=== PATIENT | male | born 2000 | race Caucasian/White ===

== ENCOUNTER 2023-04-16 08:54 | Emergency (ER) | payer SELFPAY ==
[2023-04-16 09:01] VITALS: BP 140/82; PULSE 86; RESP 18; TEMP 36.4; O2SAT 96; BMI 33.0
--- NOTE | 2023-04-16 09:14 | US_ITS ---
The [address] [address] Patient Name: CARY ABDALLA MRN: [id number] date: 2000 Sex: M Assigned Patient Location: ER Current Patient Location: ED.MAIN Accession/Order Number: [id number] Exam Date: 04/16/2023 09:30 Report Date: 04/16/2023 10:08 At the request of: CHESTER FELICIANO Procedure: US venous doppler LE RT US venous doppler LE RT, 04/16/2023 9:30 AM EST, [place]001 INDICATION: right knee pain, popliteal lump COMPARISON: None Technique: Duplex Doppler sonographic images of the right lower extremity venous system were obtained. FINDINGS: Normal flow, phasicity, augmentation and compression was observed in the common femoral, superficial femoral and popliteal veins. The right and left iliac veins are patent. There is a 5.8 x 4.6 x 2.1 cm lobulated anechoic focus in the popliteal fossa most consistent with a Reeder's cyst. US/US venous doppler LE RT IMPRESSION: No evidence of DVT in the images obtained. 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 Electronically authenticated by: JACKI MAO Date: 04/16/2023 10:08
--- NOTE | 2023-04-16 10:15 | XR_ITS ---
[address] [address] Patient Name: CARY ABDALLA MRN: [id number] date: 2000 Sex: M Assigned Patient Location: ED.MAIN Current Patient Location: Accession/Order Number: [id number] Exam Date: 04/16/2023 10:09 Report Date: 04/16/2023 10:36 At the request of: CHESTER FELICIANO Procedure: XR knee RT 4V PROCEDURE: XR knee RT 4V COMPARISON: None. HISTORY: right knee pain FINDINGS: BONES:No acute fracture or dislocation. Degenerative changes of the medial compartment with joint space narrowing marginal osteophyte formation SOFT TISSUES:Negative. No visible soft tissue swelling. EFFUSION:None visible. OTHER: Negative. XR/XR knee RT 4V IMPRESSION: Degenerative changes of the medial compartment Electronically authenticated by: ANNA ALEXANDER Date: 04/16/2023 10:36
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
== END 2023-04-16 10:36 | disposition home or self-care (01) ==
PROVIDERS: Emergency Provider Emergency Medicine
DX: M71.21 Synovial cyst of popliteal space [Baker], right knee (principal); M25.561 Pain in right knee
CPT/HCPCS: 73564; 93971; 99284

== ENCOUNTER 2024-10-01 16:06 | Emergency (ER) | payer SELFPAY ==
[2024-10-01 16:09] VITALS: BP 143/95; PULSE 79; TEMP 36.8; O2SAT 97; BMI 34.4
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
== END 2024-10-01 16:58 | disposition home or self-care (01) ==
PROVIDERS: Emergency Provider Emergency Medicine; PCP Nurse Practitioner
DX: M62.838 Other muscle spasm (principal); R52 Pain, unspecified
CPT/HCPCS: 99283

== ENCOUNTER 2025-02-19 01:50 | Emergency (ER) | payer OTHER, SELFPAY ==
[2025-02-19 01:53] VITALS: BP 147/96; PULSE 105; TEMP 37.1; O2SAT 95; BMI 34.2
--- NOTE | 2025-02-19 02:07 | ED.GENADUL1 ---
HPI HPI - General Adult General Chief complaint: Wound/Laceration Stated complaint: POSSIBLE GLASS IN LEFT HAND RING FINGER Time Seen by Provider: 02/19/25 01:58 Source: patient Mode of arrival: walk-in Limitations: no limitations History of Present Illness HPI narrative: Patient is a 24-year-old male presenting to the emergency department for evaluation of a laceration. The patient cut his finger on a piece of glass earlier tonight. The cut is located on the knuckle of his left ring finger. He is asking for to be bandaged. He does not believe there is any glass retained as there is no foreign body sensation. He cleaned the wound out with peroxide, and is currently soaking in warm soapy water. Unsure of his last tetanus shot. He denies any numbness/tingling in the finger. Denies any loss of range of motion or weakness in the finger. Related Data Home Medications ?Medication ?Instructions ?Recorded ?Confirmed No Known Home Medications 02/19/25 02/19/25 Allergies Allergy/AdvReac Type Severity Reaction Status Date / Time No Known Drug Allergies Allergy Verified 02/19/25 01:57 Review of Systems ROS Status of ROS 10 or more systems reviewed and unremarkable except as noted in history and below PFSH PFSH Social History Little interest or pleasure in doing things: not at all Feeling down, depressed, or hopeless: not at all Exam Narrative Exam Narrative: CONSTITUTIONAL: Well-appearing, answering questions and following commands appropriately SKIN: There is a small, 0.5 cm superficial linear laceration over the left fourth digit MCP. The wound is well-approximated and appears noncontaminated. There is no bleeding from the wound. EYES: Sclerae white. EARS, NOSE, THROAT: Moist oral mucosa. RESPIRATORY: Nonlabored respirations CARDIOVASCULAR: Normal rate and regular rhythm. Cap refill less than 2 seconds in the left ring finger GASTROINTESTINAL: Abdomen is nondistended. MUSCULOSKELETAL: Full range of motion of the left ring finger at the MCP, PIP, and DIP. NEUROLOGIC: Patient is awake and alert. 5/5 strength with flexion/extension at the left fourth digit MCP/DIP/PIP. Sensation intact to light touch throughout the left hand. Constitutional Vital Signs, click to edit/add: Last Vital Signs Temp 98.8 F 02/19/25 01:53 Pulse 105 H 02/19/25 01:53 Resp 18 02/19/25 01:53 BP 147/96 H 02/19/25 01:53 Pulse Ox 95 02/19/25 01:53 O2 Del Method Room Air 02/19/25 01:53 Course Vital Signs Vital signs: Vital Signs Temperature 98.8 F 02/19/25 01:53 Pulse Rate 105 H 02/19/25 01:53 Respiratory Rate 18 02/19/25 01:53 Blood Pressure 147/96 H 02/19/25 01:53 Pulse Oximetry 95 02/19/25 01:53 Oxygen Delivery Method Room Air 02/19/25 01:53 Temperature 98.8 F 02/19/25 01:53 Pulse Rate 105 H 02/19/25 01:53 Respiratory Rate 18 02/19/25 01:53 Blood Pressure 147/96 H 02/19/25 01:53 Pulse Oximetry 95 02/19/25 01:53 Oxygen Delivery Method Room Air 02/19/25 01:53 Medical Decision Making MDM Narrative Medical decision making narrative: Patient is a healthy 24-year-old male presenting to the emergency department for evaluation 0.5 cm laceration over the left fourth digit MCP. The finger is neurovascularly intact without tendinous injury. The laceration does not appear to be contaminated, and is well-approximated. I do not believe the wound requires stitches or imaging. His hand was wrapped in a sterile dressing and his tetanus shot was updated. I do believe the patient is stable for discharge. They were instructed to follow up with PCP as needed. Return precautions were given including any new or worsening symptoms. Patient understands and agrees to the plan. FINAL IMPRESSION: #Acute left fourth digit laceration DISPOSITION: Discharged home CONDITION: Good Discharge Plan Discharge Chief Complaint: Wound/Laceration Clinical Impression: Laceration Patient Disposition: Home, Self-Care Time of Disposition Decision: 02:07 Condition: Good Mode of Transportation: Private Vehicle Prescriptions / Home Meds: No Action No Known Home Medications Print Language: Frisian Instructions: Laceration Without Closure (ED) Referrals: JAKUB SARKAR [Primary Care Provider, FUEL ATTENDANT] - 1 week
--- OUTSIDE RECORDS SUMMARY | 2025-02-19 02:09 | XMS_ITS | CCD ---
Author Organization [facility] Inform ion Partnership [facility] Care Team Providers Care Rn Eligibility Name Role Phone REQUEST, DR NONE LISTED Primary Care Unavaila JAIME Conteh Admitting Unavailable JAIME JEAN Attending Unavailable JAIME JEAN Consulting Unavailable Nola Desouza Consulting Unavailable JOSE M RANDALL Attending Unavailable NO PCP, NO PCP Primary Care Unavailable Problems Active Problems Problem ClassificationProblemDateDocumented DateEpisodic/ChronicAortic; peripheral; and visceral artery aneurysms (1 source)Dissection of vertebral artery; 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]Onset: 43-14-9158QienbyhEslmo disorders and dislocations; trauma-related (1 source)Unspecified internal derangement of right knee; Translations: [Unspecified internal derangement of right knee]Onset: 79-58-9417WkfnwiqKoofz non-traumatic joint disorders (2 sources)Knee painOnset: 38-65-5743KfzdfykfPgyph infection (1 source)COVID-19; Translations: [COVID-19]Onset: 11-23-2020 Past or Other Problems Problem ClassificationProblemDateDocumented DateEpisodic/ChronicE Codes: Natural/environment (1 source)Other and unspecified overexertion or strenuous movements or postures, initial encounter; Translations: [OTH AND UNS OVREXRT/STRN MVMT/POS INT]Onset: 14-82-1696ZddrlptuCnxadcwgdwv; intervertebral disc disorders; other back problems (3 sources)Cervicalgia; Translations: [CERVICALGIA]Onset: 41-12-9392Twfyooaa Results Test NameValueInterpretationReference RangeFacilityXR KNEE RT 3 VWSon 12-24-2023 XR KNEE RT 3 VWSXR KNEE RT 3 VWS XR KNEE RIGHT 3 VIEWS HISTORY: Injury, pain COMPARISON: None IMPRESSION: * No fracture. No malalignment. * Small knee joint effusion. * Slight joint space narrowing in the medial femorotibial compartment. Finalized by Shashank Price MD on 12/24/2023 5:24 AMNormalPremier Health [facility] South[facility] AUTO DIFFon [id number] #0.0 103/ulNormal0.0-0.1The [facility] CenterComment on above:Performed By: #### CBC #### [facility] [address] [place] [address] Frances KarenBasophils/100 WBC (Bld)0.5 %Normal0.2-2.0The [facility] Comment on above:Performed By: #### CBC #### [facility] [address] [place] [address] Frances KarenEO #0.1 103/ulNormal0.0-0.7The [facility] CenterComment on above: Performed By: #### CBC #### [facility] [address] [place] [address] Frances KarenEosinophils/100 WBC (Bld)1.1 %Normal0.9-7.0The [facility] Comment on above:Performed By: #### CBC #### [facility] [address] [place] [address] Frances KarenErythrocyte distribution width (RBC) [Ratio]13.1 %Vcqfid96.0-15.0The [facility] CenterComment on above:Performed By: #### CBC #### [facility] [address] [place] [address] Frances KarenHematocrit (Bld) [Volume fraction]42.6 %Iqtpjm47.0-54.0The [facility] CenterComment on above:Performed By: #### CBC #### [facility] [address] [place], [place] [address] Frances KarenHemoglobin (Bld) [Mass/Vol]14.4 g/tORjhzpf93.0-18.0The [facility] CenterComment on above:Performed By: #### CBC #### [facility] [address] [place] [address] Frances KarenIG #0.02 10e3/ulNormal0.00-0.03The [facility] CenterComment on above:Performed By: #### CBC #### [facility] [address] [place] [address] Frances KarenIG %0.4 %Normal0.0-0.5The [facility] CenterComment on above: Performed By: #### CBC #### [facility] [address] [place] [address] Frances KarenLYMPH #0.8 103/ulCritically low1.2-3.8The [facility] CenterComment on above:Performed By: #### CBC #### [facility] [address] [place] [address] Frances KarenLymphocytes/100 WBC (Bld)13.9 %Critically low20.5-60.0The [facility] CenterComment on above:Performed By: #### CBC #### [facility] [address] [place] [address] Frances KarenMANUAL DIFF REQNONormalThe [facility] CenterComment on above: Performed By: #### CBC #### [facility] [address] [place] [address] Frances KarenMCH (RBC) [Entitic mass]28.2 emGlismc20.9-34.0The [facility] Comment on above:Performed By: #### CBC #### [facility] [address] [place] [address] Frances KarenMCHC (RBC) [Mass/Vol]33.8 g/xOQoqkjg90.9-35.2[facility] Comment on above:Performed By: #### CBC #### [facility] [address] [place] [address] Frances KarenMCV (RBC) [Entitic vol]83.4 vQNbnsps53.0-94.0[facility] Comment on above:Performed By: #### CBC #### [facility] [address] [address] Frances KarenMONO #1.2 103/ulCritically high0.3-0.8The [facility] CenterComment on above:Performed By: #### CBC #### [facility] [address] [address] Frances KarenMonocytes/100 WBC (Bld)22.1 %Critically high1.7-12.0The [facility] CenterComment on above:Performed By: #### CBC #### [facility] [address] [place] [address] Frances KarenNEUT #3.4 103/ulNormal1.4-6.5The [facility] CenterComment on above: Performed By: #### CBC #### [facility] [address] [place] [address] Frances KarenNeutrophils/100 WBC (Bld)62.0 %Mkbtaj06.0-75.0The [facility] Comment on above:Performed By: #### CBC #### [facility] [address] [place] [address] Frances KarenPlatelet mean volume (Bld) [Entitic vol]9.2 fLCritically low9.5-13.5 The [facility] CenterComment on above:Performed By: #### CBC #### [facility] [address] [place] [address] Frances HuizfIBF117 103/ejUrcvwi712-529Njl [facility] CenterComment on above: Performed By: #### CBC #### [facility] [address] [place] [address] Frances KarenRBC5.11 106/ulNormal4.70-6.10The [facility] CenterComment on above: Performed By: #### CBC #### [facility] [address] [place] [address] Frances KarenWBC5.5 103/ulNormal4.0-11.0The [facility] CenterComment on above: Performed By: #### CBC #### [facility] [address] [id number] Frances JonesenCT NECK ST W CONon [id number] NECK ST W CONCT NECK WITH CONTRAST. 11/20/2020 2:00 PM EDT [...] Electronically authenticated by: NOLA DESOUZA Date: 2020-11-20 14:57[facility] HospitalPROF 14(COMP METB)on [id number] [Mass/Vol]3.8 g/dLNormal 3.5-5.0[facility] Medical CenterComment on above:Performed By: #### CMP #### [facility] [address] [place], [place] [address] Frances KarenAlbumin/Globulin [Mass ratio]1.1 {ratio}NormalThe [facility] Comment on above:Performed By: #### CMP #### [facility] [address] [place] [address] Frances KarenALP [Catalytic activity/Vol]61 U/FHtybzu15-336QzoUniversity Hospitals St. [facility] Comment on above:Performed By: #### CMP #### [facility] [address] [place] [address] Frances KarenALT [Catalytic activity/Vol]27 U/DEtwwzq45-77SuqUniversity Hospitals St. [facility] Center Comment on above:Performed By: #### CMP #### [facility] [address] [place] [address] Frances KarenAnion gap [Moles/Vol]15.6 mmol/LNormalThe [facility] CenterComment on above:Performed By: #### CMP #### [facility] [address] [place] [address] Frances KarenAST [Catalytic activity/Vol]15 U/LCritically tkj46-13RpnUniversity Hospitals St. John Medical CenterComment on above:Performed By: #### CMP #### [facility] [address] [place] [address] Frances KarenBilirubin [Mass/Vol]0.4 mg/dLNormal0.2-1.3TWyandot Memorial Hospital Comment on above:Performed By: #### CMP #### [facility] [address] [place] [address] Frances KarenCalcium [Mass/Vol]8.4 mg/dLNormal8.4-10.2[facility] Comment on above:Performed By: #### CMP #### [facility] [address] [place], [place] [address] Frances KarenChloride [Moles/Vol]104 mmol/PRcjbtv47-071Ekj [facility] Comment on above:Performed By: #### CMP #### [facility] [address] [place] [address] Frances KarenCO2 [Moles/Vol]24.8 mmol/QNmztfa52.0-30.0The [facility] Comment on above:Performed By: #### CMP #### [facility] [address] [place] [address] Frances KarenCreatinine [Mass/Vol]1.36 mg/dLCritically high0.66-1.25The [facility] CenterComment on above:Performed By: #### CMP #### [facility] [address] [place] [address] Frances KarenEGFR-AF AUSTRALIAN>60Normal>=60The [facility] CenterComment on above: Performed By: #### CMP #### [facility] [address] [place] [address] Frances KarenEGFR-NON AF AUSTRALIAN>60Normal>=60The [facility] CenterComment on above:Performed By: #### CMP #### [facility] [address] [place] [address] Frances KarenGlobulin (S) [Mass/Vol]3.5 g/dLNormalThOhioHealth Berger HospitalComment on above:Performed By: #### CMP #### [facility] [address] [place] [address] Frances KarenGlucose [Mass/Vol]100 mg/uTHsufss98-711OjmUniversity Hospitals St. John Medical CenterComment on above:Performed By: #### CMP #### [facility] [address] [place] [address] Frances KarenPotassium [Moles/Vol]3.4 mmol/LNormal3.4-5.0The [facility] Comment on above:Performed By: #### CMP #### [facility] [address] [place] [address] Frances KarenProtein [Mass/Vol]7.3 g/dLNormal6.1-8.2[facility] Medical CenterComment on above:Performed By: #### CMP #### [facility] [address] [place] [address] Frances KarenSodium [Moles/Vol]141 mmol/BJrgmcr956-440Lki [facility] Comment on above:Performed By: #### CMP #### [facility] [address] [place] [address] Frances KarenUrea nitrogen [Mass/Vol]12.0 mg/dLNormal9.0-20.0The [facility] HospitalComment on above:Performed By: #### CMP #### [facility] [address] [place] [address] Frances KarenUrea nitrogen/Creatinine [Mass ratio]8.8 mg/mgNormalThe [facility] CenterComment on above:Performed By: #### CMP #### [facility] [address] [place] [address] Frances KarenPROTIMEon 31-32-5370SYO Coag (PPP) [Relative time]1.03 {INR}Normal The [facility] CenterComment on above:Performed By: #### PTT, PT #### [facility] [address] [place] [address] Frances KarenINR GUIDELINESSEE BELOWNormalThOhioHealth Berger HospitalComsparrow ionia hospital on above: Result Comment: DESIRED INR: 2.0 - 3.0 CONDITIONS NOT LISTED BELOW 2.5 - 3.5 FOR PROSTHETIC HEART VALVE REPLACEMENT 2.5 - 3.5 RECURRENT THROMBOSISPerformed By: #### PTT, PT #### [facility] [address] [place] [address] Frances KarenPT Coag (PPP) [Time]11.1 sNormal9.0-11.6The [facility] CenterComment on above:Performed By: #### PTT, PT #### [facility] [address] [place] [address] Frances KarenPTTon 76-41-6419mAXR Coag (Bld) [Time]32.8 eSntjob91.3-36.2The [facility] CenterComment on above:Performed By: #### PTT, PT #### [facility] [address] [place] [address] Frances JonesenSYMPTOMATIC COVID-19 ANTIGENon [id number] StatementSEE BELOW NormalThe [facility] CenterComment on above:Result Comment: This test has not been FDA [...] declaration is terminated or authorization is revoked sooner.Performed By: #### CVDAGS #### [facility] [address] [place] [address] Frances GutierresWgbunDQBY-TfF-5 (COVID-19) RNA YOLANDE+probe Ql (Unsp spec)PositiveCritically abnormalNEGATIVEThe [facility] CenterComment on above:Performed By: #### CVDAGS #### [facility] [address] [place] [address] Frances MckeonRegistrationon 10-85-6673Qrfajpuaqiii [id number]#1.00CD:[address] [place], [place] [address] 58-23-6404Dsgsqpo [id number]#1.00CD:[address] [place], [place] [address]Registrationon 40-74-7099Fbrxtowpxtul [id number]#1.00CD:[address] [place] [address] Encounters Encounter DateEncounter TypeCare ProviderFacilityStart: 12-24-2023 End: 70-68-9591Whzsgnuer department patient visitRYABBY MADYHLTuscarawas Hospitaltart: 11-20-2020 End: 83-08-5264bbdpoulahgYT NONE LISTED REQUESTFacility:H1 Payers DatePayer CategoryPayerPolicy [id number] Summary Purpose Family History No Family History Records FoundNo Family History Records FoundNo Family History Records Found Advance Directives No Advanced Directives Records FoundNo Advanced Directives Records FoundNo Advanced Directives Records Found Additional Source Comments (unrecognized sect ion and content) No Status Records FoundNo Status Records FoundNo Status Records Found INFORMATION SOURCE (unrecogn ized section and content) DATE CREATED AUTHOR 04/16/2020 [facility] DATE CREATED AUTHOR AUTHOR'S ORGANIZ ATION 07/22/[address] [facility] DATE CREATED AUTHOR AUTHOR'S ORGANIZ ATION 12/25/2023 [facility] FOR RECORDS PERTAINING TO PATIENTS WHO [...] BE BASED ON THE PRIMARY CLINICAL RECORDS. [facility] [facility]. provides no warranty or guarantee of the accuracy or completeness of information in this document.
--- OUTSIDE RECORDS SUMMARY | 2025-02-19 02:11 | XMS_ITS | Clinical Summary ---
Author Organization [facility] Address [address] [place] [address] Care Team Providers Care Peanut Picker Name Role Phone Unavailable Primary Care Provider Unavailabl e Social History Tobacco UseTypesPacks/DayYears UsedDateSmoking Tobacco: Never AssessedUT Safety & EnvironmentAnswerDate RecordedFear of Current or Ex-PartnerNot on file 05/16/2023Emotionally AbusedNot on file05/16/2023hysically AbusedNot on file 05/16/2023Sexually AbusedNot on file05/16/2023hysically or Sexually AbusedNot on file05/16/2023Sex and Gender InformationValueDate RecordedSex Assigned at BirthNot on fileLegal IezBava0609/21/2021 12:39 AM EDTGender IdentityNot on file Sexual OrientationNot on file Plan of Treatment Not on file
[2025-02-19] MEDS: DIPHTH,PERTUSS(ACELL),TET VAC 0.5 ML SYRINGE IM (02:18)
== END 2025-02-19 02:37 | disposition home or self-care (01) ==
PROVIDERS: Emergency Provider Student in an Organized Health Care Education/Training Program; PCP Nurse Practitioner
DX: S61.215A Laceration without foreign body of left ring finger without damage to nail, initial encounter (principal); W25.XXXA Contact with sharp glass, initial encounter; Z23 Encounter for immunization
CPT/HCPCS: 90471; 90715; 99284